=== PATIENT | male | born 1990 | race Caucasian/White ===

== ENCOUNTER 2016-12-20 14:18 | Emergency (ER) | payer OTHER ==
[2016-12-20 14:27] VITALS: BP 118/79
--- NOTE | 2016-12-20 14:52 | UC ---
Skin Complaint HPI - HPI Summary HPI Summary: 26 y/o male presents 26 y/o male presents to the urgent care c/o pimples in his pubic area for the past 1 month. Pt thinks is acne since he has Hx of acne and he has't been able to get an appt with retail advisor. Pt states it started as on pimple and now is spreading in all the pubic area. Denies pain, itchiness , fever, N/V/D, urinary symproms, Hx of STDs or penile discharge. Pt has not other complains - History of Current Complaint Chief Complaint: UCSkin Time Seen by Provider: 12/20/16 14:27 Stated Complaint: SKIN COMPLAINT Hx Obtained From: Patient Onset/Duration: Gradual Onset, Lasting Weeks, Still Present Skin Exposure Onset/Duration: Weeks Ago Timing: Constant Onset Severity: Mild Current Severity: Moderate Pain Intensity: 0 Pain Scale Used: 0-10 Numeric Location: Discrete - at the pubic area Character: Redness Aggravating: Nothing Alleviating: Nothing Associated Signs & Symptoms: Positive: Negative. Negative: Nausea, Vomiting, Fever, Chills, Tenderness - Allergy/Home Medications Allergies/Adverse Reactions: Allergies Allergy/AdvReac Type Severity Reaction Status Date / Time No Known Allergies Allergy Verified 12/20/16 14:24 Home Medications: Home Medications Loratadine [Claritin 10 MG CAP] 10 mg PO DAILY 12/20/16 [History Confirmed 12/20] Review of Systems Constitutional: Negative Skin: Rash - pubic area pimples Eyes: Negative ENT: Negative Respiratory: Negative Cardiovascular: Negative Gastrointestinal: Negative Genitourinary: Negative Motor: Negative Neurovascular: Negative Musculoskeletal: Negative Neurological: Negative Psychological: Negative All Other Systems Reviewed And Are Negative: Yes PMH/Surg Hx/FS Hx/Imm Hx Previously Healthy: Yes Respiratory History: Asthma - Surgical History Surgical History: Yes Surgery Procedure, Year, and Place: [place] teeth - Family History Known Family History: Positive: None - Pt denies any FMHX - Social History Occupation: Employed Full-time Lives: With Family Alcohol Use: Occasionally Substance Use Type: None Smoking Status (MU): Never Smoked Tobacco Physical Exam Triage Information Reviewed: Yes Appearance: Well-Appearing, No Pain Distress, Well-Nourished, Thin Vital Signs: Initial Vital Signs Temp 97.6 F 12/20/16 14:25 Pulse 65 12/20/16 14:25 Resp 16 12/20/16 14:25 BP 118/79 12/20/16 14:25 Pulse Ox 98 12/20/16 14:25 Vital Signs Reviewed: Yes Eye Exam: Normal Eyes: Positive: Conjunctiva Clear - PERRLA, EOMI ENT Exam: Normal ENT: Positive: Normal ENT inspection, Hearing grossly normal, Pharynx normal, TMs normal Dental Exam: Normal Neck exam: Normal Neck: Positive: Supple, Nontender, No Lymphadenopathy Respiratory Exam: Normal Respiratory: Positive: Chest non-tender, Lungs clear, Normal breath sounds Cardiovascular Exam: Normal Cardiovascular: Positive: RRR, No Murmur, Pulses Normal Abdominal Exam: Normal Abdomen Description: Positive: Nontender, No Organomegaly, Soft. Negative: CVA Tenderness (R), CVA Tenderness (L) Bowel Sounds: Positive: Present Musculoskeletal Exam: Normal Musculoskeletal: Positive: Strength Intact, ROM Intact, No Edema Neurological Exam: Normal Psychological Exam: Normal Skin: Positive: rashes - Pubic area with diffuse erythemaous papules with central umbilication. non tender to palpation or swelling observed. Course/Dx - Course Course Of Treatment: 26 y/o male presents 26 y/o male presents to the urgent care c/o pimples in his pubic area for the past 1 month. Pt thinks is acne since he has Hx of acne and he has't been able to get an appt with retail advisor. Pt states it started as on pimple and now is spreading in all the pubic area. Denies pain, itchiness, fever, N/V/D, urinary symproms, Hx of STDs or penile discharge. Hx obtained. Pt with Molluscum Contagiosum. Pt explained it is self limited condition. However sincer is in the pubic area and risk of spreading if sexxually active. Pt Rx Cantharis topical lotion. 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 Pt understood and agreed. - Differential Diagnoses - Skin Complaint Differential Diagnoses: Eczema, Scabies, Tinea, Urticaria, Other - molluscum contagiosum, STDs - Diagnoses Provider Diagnoses: 1- Pubic area with Molluscum contagiosum Discharge - Discharge Plan Condition: Stable Disposition: HOME Prescriptions: Homeopathic Products [Cantharis Compositum] 1 liq PO ONCE #1 bottle Patient Education Materials: Molluscum Contagiosum (ED) Referrals: No Primary Care Phys,NOPCP [Primary Care Provider] - [facility] [place] [facility] [Outside] Additional Instructions: 1- Molluscum contagiosum is commonly seen in children, but can also occur in adults. The virus is transmitted through direct skin contact or fomites. Molluscum contagiosum infection in the genital region may result from transmission during sexual activity. 2- Please apply topical medication once in affected area and covered. 3- If not improvement of symptoms f/u with your retail advisor for further evaluation and treatment
== END 2016-12-20 14:58 | disposition home or self-care (01) ==
LOC: UCCORT 14:18
DX: B08.1 Molluscum contagiosum (principal)
CPT/HCPCS: 99212; G0463

== ENCOUNTER 2017-05-06 14:05 | Emergency (ER) | payer OTHER ==
[2017-05-06 14:50] VITALS: BP 125/70
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
== END 2017-05-06 16:38 | disposition home or self-care (01) ==
LOC: UCCORT 14:05
DX: S13.4XXA Sprain of ligaments of cervical spine, initial encounter (principal); X58.XXXA Exposure to other specified factors, initial encounter; Y93.9 Activity, unspecified; Y92.9 Unspecified place or not applicable
CPT/HCPCS: 72020; 72050; 99212; G0463